=== PATIENT | female | born 1995 | race Caucasian/White ===

== ENCOUNTER 2018-12-29 20:05 | Emergency (ER) | payer BC ==
[~2018-12-29] VITALS: Ht 157.5 cm; Wt 69.9 kg
[2018-12-29 20:46] VITALS: Ht 157.5 cm; Wt 69.9 kg
[2018-12-29 22:23] VITALS: BP 137/90
== END 2018-12-29 22:23 | disposition home or self-care (01) ==
LOC: ED 20:05
DX: L03.113 Cellulitis of right upper limb (principal)